=== PATIENT | male | born 1960 | race Caucasian/White ===

== ENCOUNTER 2022-10-24 15:49 | Emergency (ER) | payer SELFPAY ==
[2022-10-24] MEDS ORDERED: Bacitracin 1 PK ONE (16:20)
== END 2022-10-24 16:23 | disposition home or self-care (01) ==
LOC: CSHERS 15:49
DX: S80.11XA Contusion of right lower leg, initial encounter (principal); I48.91 Unspecified atrial fibrillation; I10 Essential (primary) hypertension; F17.210 Nicotine dependence, cigarettes, uncomplicated; W22.03XA Walked into furniture, initial encounter
CPT/HCPCS: 99283

== ENCOUNTER 2023-11-18 19:28 | Inpatient (IN) | payer BC, SELFPAY ==
[2023-11-18 20:31] LABS: #Eosinphils 0.1 10x3/uL (0.0-0.5); #Monocytes 0.6 10x3/uL (0.0-1.1); #Neutrophils 4.6 10x3/uL (1.5-8.4); %Basophils 0.2 % (0.0-2.0); %Eosinophils 2.1 % (0.0-6.0); %Lymphocytes 9.1 % (18.0-47.0); %Monocytes 10.1 % (0.0-10.0); %Neutrophils 78.2 % (40.0-75.0); Hematocrit 36.1 % (38.8-50.0); Hemoglobin 12.3 g/dL (13.5-17.5); INR-International Normal Ratio 1.1; Mean Corpuscular HGB CONC 34.1 g/dL (32.0-36.0); Mean Corpuscular Hemoglobin 29.1 pg (27.0-33.0); Mean Corpuscular Volume 85.5 fl (81.2-95.1); Mean Platelet Volume 11.3 fl (7.4-10.4); PTT 30.6 sec (22.0-33.0); Platelet Count 168 10x3/uL (150-450); Prothrombin Time 11.4 sec (9.5-12.1); RBC Distribution Width 14.1 % (11.5-14.5); Red Blood Cell (RBC) Count 4.22 10x6/uL (4.32-5.72); White Blood Cell (WBC) Count 5.8 10x3/uL (3.5-10.5)
[2023-11-18 20:50] LABS: ALT (SGPT) 118 U/L (8-55); AST (SGOT) 154 U/L (5-34); Alkaline Phosphatase 109 U/L (40-110); Anion Gap 15 mmol/L (10-20); BUN (Urea Nitrogen) 13 mg/dL (8.4-25.7); Bilirubin, Total 0.9 mg/dL (0.2-1.2); Calc. Creatinine Clearance 0 mL/min (70-130); Calcium 8.5 mg/dL (7.8-10.44); Carbon Dioxide 24 mmol/L (23-31); Chloride 104 mmol/L (98-107); Estimated GFR 104; Globulin 2.7 g/dL (2.4-3.5); Glucose 70 mg/dL (80-115); Magnesium 1.6 mg/dL (1.6-2.6); Potassium 3.9 mmol/L (3.5-5.1); Protein, Total 5.7 g/dL (5.8-8.1); Sodium 139 mmol/L (136-145)
[2023-11-18] MEDS ORDERED: Guaifenesin DM 100-10/5 ML UDCUP PO PRN (21:46)
[2023-11-18] MEDS ORDERED: HYDROcodone/Acetaminophen 5/325 mg Tablet PO PRN (21:46)
[2023-11-18] MEDS ORDERED: Senokot S 8.6-50 MG TAB PO PRN (21:46)
[2023-11-18] MEDS ORDERED: Calcium Carbonate 500 MG ChewTAB PO PRN (21:46)
[2023-11-18] MEDS ORDERED: Acetaminophen 325 MG TAB PO PRN (21:46)
[2023-11-18] MEDS ORDERED: Ipratropium/Albuterol 3 ML NEB NEB PRN (22:15)
[2023-11-18 23:37] VITALS: BMI 26.9
[2023-11-19] MEDS: Metoprolol Tartrate 25 MG TAB PO SCH (00:02)
[2023-11-19] MEDS: Apixaban 5 MG TAB PO SCH ×2 (00:02→10:48)
[2023-11-19] MEDS: Methimazole 5 MG TAB PO SCH ×2 (00:03→11:01)
[2023-11-19] MEDS: Magnesium 2 GM/50 ML(in water) 2 GM in Premix 1 BAG IVPB SCH (00:04)
[2023-11-19 04:14] LABS: ALT (SGPT) 104 U/L (8-55); AST (SGOT) 138 U/L (5-34); Alkaline Phosphatase 106 U/L (40-110); Anion Gap 13 mmol/L (10-20); BUN (Urea Nitrogen) 11 mg/dL (8.4-25.7); Bilirubin, Total 0.9 mg/dL (0.2-1.2); Calc. Creatinine Clearance 157 mL/min (70-130); Calcium 8.5 mg/dL (7.8-10.44); Carbon Dioxide 23 mmol/L (23-31); Chloride 104 mmol/L (98-107); Cholesterol 97 mg/dl (< 200 Desired); Estimated GFR 106; Globulin 2.7 g/dL (2.4-3.5); Glucose 71 mg/dL (80-115); HDL Cholesterol 24 mg/dL (>60 Neg Risk); LDL Cholesterol, Calculated 56 mg/dL; Potassium 3.6 mmol/L (3.5-5.1); Protein, Total 5.7 g/dL (5.8-8.1); Sodium 136 mmol/L (136-145); Triglycerides 86 mg/dL (Less than 150)
[2023-11-19 04:23] LABS: #Monocytes 0.6 10x3/uL (0.0-1.1); %Basophils 0.2 % (0.0-2.0); %Eosinophils 0.4 % (0.0-6.0); %Lymphocytes 17.4 % (18.0-47.0); %Monocytes 10.7 % (0.0-10.0); %Neutrophils 71.1 % (40.0-75.0); Hematocrit 37.9 % (38.8-50.0); Hemoglobin 12.4 g/dL (13.5-17.5); Mean Corpuscular HGB CONC 32.7 g/dL (32.0-36.0); Mean Corpuscular Hemoglobin 28.1 pg (27.0-33.0); Mean Corpuscular Volume 85.9 fl (81.2-95.1); Mean Platelet Volume 11.5 fl (7.4-10.4); Platelet Count 180 10x3/uL (150-450); RBC Distribution Width 14.2 % (11.5-14.5); Red Blood Cell (RBC) Count 4.41 10x6/uL (4.32-5.72); White Blood Cell (WBC) Count 5.7 10x3/uL (3.5-10.5)
[2023-11-19 04:30] LABS: Thyroid Stimulating Hormone Less than 0.0025 uIU/mL (0.35-4.94)
[2023-11-19 04:44] LABS: Free T4 (Free Thyroxine) Greater than 5.00 ng/dL (0.70-1.48)
[2023-11-19] MEDS: Potassium Chloride 20 MEQ TAB PO SCH (06:34)
[2023-11-19] MEDS: Budesonide 0.25 MG/2 ML NEB INH SCH (07:10)
[2023-11-19] MEDS: Lisinopril 2.5 MG TAB PO SCH (10:47)
[2023-11-19] MEDS: Multivitamin W/ Minerals 1 TAB PO SCH (10:47)
[2023-11-19] MEDS: Sertraline 25 MG TAB PO SCH (10:47)
[2023-11-19] MEDS: Bupropion 150 MG SR.TAB PO SCH (10:48)
[2023-11-20 04:07] LABS: #Monocytes 0.5 10x3/uL (0.0-1.1); #Neutrophils 3.7 10x3/uL (1.5-8.4); %Basophils 0.2 % (0.0-2.0); %Eosinophils 0.4 % (0.0-6.0); %Lymphocytes 15.1 % (18.0-47.0); %Monocytes 10.8 % (0.0-10.0); %Neutrophils 73.3 % (40.0-75.0); Hematocrit 36.3 % (38.8-50.0); Mean Corpuscular HGB CONC 33.1 g/dL (32.0-36.0); Mean Corpuscular Hemoglobin 28.4 pg (27.0-33.0); Mean Platelet Volume 11.3 fl (7.4-10.4); Platelet Count 147 10x3/uL (150-450); RBC Distribution Width 14.1 % (11.5-14.5); Red Blood Cell (RBC) Count 4.22 10x6/uL (4.32-5.72)
[2023-11-20 04:16] LABS: ALT (SGPT) 113 U/L (8-55); AST (SGOT) 160 U/L (5-34); Albumin 2.9 g/dL (3.4-4.8); Alkaline Phosphatase 101 U/L (40-110); Anion Gap 11 mmol/L (10-20); BUN (Urea Nitrogen) 9 mg/dL (8.4-25.7); Bilirubin, Total 0.9 mg/dL (0.2-1.2); Calc. Creatinine Clearance 160 mL/min (70-130); Calcium 8.4 mg/dL (7.8-10.44); Carbon Dioxide 23 mmol/L (23-31); Chloride 106 mmol/L (98-107); Estimated GFR 106; Globulin 2.7 g/dL (2.4-3.5); Glucose 80 mg/dL (80-115); Magnesium 1.7 mg/dL (1.6-2.6); Potassium 4.1 mmol/L (3.5-5.1); Protein, Total 5.6 g/dL (5.8-8.1); Sodium 136 mmol/L (136-145)
[2023-11-20 04:54] LABS: HIV (1/2) Antibody/Antigen Non-Reactive (NonReactive); HIV 1/2 INDEX 0.06 S/CO (<1.00)
[2023-11-20] MEDS: Ondansetron PF 4 MG/2 ML Vial IVP PRN (08:14)
[2023-11-20] MEDS: Budesonide 0.5 MG/2 ML NEB ONE (08:18)
[2023-11-20] MEDS ORDERED: Budesonide 0.5 MG/2 ML NEB ONE (19:19)
[2023-11-21 04:26] LABS: #Monocytes 0.6 10x3/uL (0.0-1.1); #Neutrophils 3.3 10x3/uL (1.5-8.4); %Basophils 0.4 % (0.0-2.0); %Eosinophils 0.4 % (0.0-6.0); %Monocytes 13.2 % (0.0-10.0); %Neutrophils 68.6 % (40.0-75.0); Hematocrit 38.1 % (38.8-50.0); Hemoglobin 12.5 g/dL (13.5-17.5); Mean Corpuscular HGB CONC 32.8 g/dL (32.0-36.0); Mean Corpuscular Hemoglobin 28.6 pg (27.0-33.0); Mean Corpuscular Volume 87.2 fl (81.2-95.1); Mean Platelet Volume 11.7 fl (7.4-10.4); Platelet Count 151 10x3/uL (150-450); Red Blood Cell (RBC) Count 4.37 10x6/uL (4.32-5.72); White Blood Cell (WBC) Count 4.8 10x3/uL (3.5-10.5)
[2023-11-21 04:29] LABS: ALT (SGPT) 110 U/L (8-55); AST (SGOT) 151 U/L (5-34); Alkaline Phosphatase 122 U/L (40-110); Anion Gap 14 mmol/L (10-20); BUN (Urea Nitrogen) 10 mg/dL (8.4-25.7); Bilirubin, Total 0.7 mg/dL (0.2-1.2); Calc. Creatinine Clearance 160 mL/min (70-130); Calcium 8.9 mg/dL (7.8-10.44); Carbon Dioxide 26 mmol/L (23-31); Chloride 103 mmol/L (98-107); Estimated GFR 106; Globulin 2.9 g/dL (2.4-3.5); Glucose 94 mg/dL (80-115); Magnesium 1.7 mg/dL (1.6-2.6); Potassium 4.5 mmol/L (3.5-5.1); Protein, Total 5.9 g/dL (5.8-8.1); Sodium 138 mmol/L (136-145)
[2023-11-21 08:24] VITALS: BP 143/64; TEMP 97.6
[2023-11-23 14:36] LABS: HBCM Index 0.08 S/CO (0-0.79); HBSAg Index 0.31 S/CO (0-0.99); Hep A IgM AB Non-Reactive S/CO (NonReactive); Hep A IgM S/CO 0.24 S/CO (0-0.79); Hep B Surf Ag Non-Reactive S/CO (NonReactive); Hep C IgG Ab Non-Reactive S/CO (NonReactive); Hepatitis B Core IgM Abs Non-Reactive S/CO (NonReactive)
[2023-11-23 15:06] LABS: Vitamin B12 1187 pg/mL (211-911)
== END 2023-11-21 11:48 | disposition home or self-care (01) | DRG 644 ==
LOC: CSHERS 19:28 → CSHTELE 21:46 → OBSVTOIN 11-20 09:34
PROVIDERS: ADMIT Student in an Organized Health Care Education/Training Program; ATTEND Family Medicine
DX: E05.90 Thyrotoxicosis, unspecified without thyrotoxic crisis or storm (principal); I50.22 Chronic systolic (congestive) heart failure; I67.82 Cerebral ischemia; E55.9 Vitamin D deficiency, unspecified; F10.10 Alcohol abuse, uncomplicated; I11.0 Hypertensive heart disease with heart failure; J34.89 Other specified disorders of nose and nasal sinuses; R29.6 Repeated falls; R63.4 Abnormal weight loss; R27.0 Ataxia, unspecified; M79.662 Pain in left lower leg; M89.9 Disorder of bone, unspecified; I45.10 Unspecified right bundle-branch block; J30.1 Allergic rhinitis due to pollen; I48.0 Paroxysmal atrial fibrillation; F41.9 Anxiety disorder, unspecified; F32.A Depression, unspecified; J44.9 Chronic obstructive pulmonary disease, unspecified; R74.01 Elevation of levels of liver transaminase levels; G47.33 Obstructive sleep apnea (adult) (pediatric); Z79.899 Other long term (current) drug therapy; Z79.01 Long term (current) use of anticoagulants; Z98.890 Other specified postprocedural states; Z83.3 Family history of diabetes mellitus; Z87.891 Personal history of nicotine dependence; Z91.199 Patient's noncompliance with other medical treatment and regimen due to unspecified reason; Z68.27 Body mass index [BMI] 27.0-27.9, adult
CPT/HCPCS: 36415; 70450; 70551; 71045; 76536; 76705; 80053; 80061; 80074; 82140; 82607; 83735; 84238; 84439; 84443; 84481; 85025; 85610; 85730; 87389; 93005; 93306; 93923; 94640; 96374; 96375; G0378; J2405; J3475; J7626

== ENCOUNTER 2024-11-01 11:11 | Outpatient (CLI) | payer MEDICARE, OTHER ==
[2024-11-01 12:12] LABS: Hematocrit 46.2 % (38.8-50.0); Hemoglobin 15.3 g/dL (13.5-17.5); Mean Corpuscular HGB CONC 33.1 g/dL (32.0-36.0); Mean Corpuscular Hemoglobin 30.5 pg (27.0-33.0); Mean Corpuscular Volume 92.2 fL (81.2-95.1); Mean Platelet Volume 9.2 fL (7.4-10.4); Platelet Count 159 10x3/uL (150-450); RBC Distribution Width 12.8 % (11.5-14.5); Red Blood Cell (RBC) Count 5.01 10x6/uL (4.32-5.72); White Blood Cell (WBC) Count 6.59 10x3/uL (3.5-10.5)
[2024-11-01 12:27] LABS: Anion Gap 12 mmol/L (10-20); BUN (Urea Nitrogen) 20 mg/dL (8.4-25.7); Calc. Creatinine Clearance 0 mL/min (70-130); Calcium 9.2 mg/dL (7.8-10.44); Carbon Dioxide 26 mmol/L (23-31); Chloride 108 mmol/L (98-107); Estimated GFR 80; Glucose 102 mg/dL (80-115); Sodium 142 mmol/L (136-145)
== END 2024-11-01 11:12 | disposition home or self-care (01) ==
LOC: CSHLAB 11:11
PROVIDERS: ATTEND Surgery
DX: Z01.818 Encounter for other preprocedural examination (principal); Z12.11 Encounter for screening for malignant neoplasm of colon
CPT/HCPCS: 80048; 85027; 93005; 93010

== ENCOUNTER 2024-11-08 05:48 | Day surgery (SDC) | payer MEDICARE, OTHER ==
[2024-11-01 11:54] VITALS: BMI 34.5
[2024-11-08] MEDS ORDERED: PROPOFOL 20 ML ONE ×5 (08:27→09:34)
[2024-11-08] MEDS ORDERED: fentaNYL 50 mcg/mL 1 mL Vial ONE (08:37)
[2024-11-08] MEDS ORDERED: Ondansetron PF 4 MG/2 ML Vial ONE (08:37)
== END 2024-11-08 10:30 | disposition home or self-care (01) ==
LOC: CSHSDC 05:48
PROVIDERS: ATTEND Surgery
PROC: 0DBH8ZX Excision of Cecum, Via Natural or Artificial Opening Endoscopic, Diagnostic (ICD-10-PCS; principal; 2024-11-08)
PROC: 0DBL8ZX Excision of Transverse Colon, Via Natural or Artificial Opening Endoscopic, Diagnostic (ICD-10-PCS; 2024-11-08)
PROC: 0DBN8ZX Excision of Sigmoid Colon, Via Natural or Artificial Opening Endoscopic, Diagnostic (ICD-10-PCS; 2024-11-08)
PROC: 0DBN8ZZ Excision of Sigmoid Colon, Via Natural or Artificial Opening Endoscopic (ICD-10-PCS; 2024-11-08)
DX: Z12.11 Encounter for screening for malignant neoplasm of colon (principal); K57.30 Diverticulosis of large intestine without perforation or abscess without bleeding; D12.3 Benign neoplasm of transverse colon; D12.8 Benign neoplasm of rectum; K63.5 Polyp of colon; F41.9 Anxiety disorder, unspecified; I48.0 Paroxysmal atrial fibrillation; E78.2 Mixed hyperlipidemia; F32.A Depression, unspecified; G47.33 Obstructive sleep apnea (adult) (pediatric); I10 Essential (primary) hypertension; M19.90 Unspecified osteoarthritis, unspecified site; M19.011 Primary osteoarthritis, right shoulder; E03.9 Hypothyroidism, unspecified; Z87.891 Personal history of nicotine dependence; Z79.890 Hormone replacement therapy; Z79.01 Long term (current) use of anticoagulants; Z79.899 Other long term (current) drug therapy
CPT/HCPCS: 45380; 45385; J2405; J2704; J3010; 88305